=== PATIENT | female | born 1985 | race Caucasian/White ===

== ENCOUNTER 2020-06-25 19:15 | Emergency (ER) | payer OTHER ==
[~2020-06-25] VITALS: Ht 175.3 cm; Wt 81.7 kg
[~2020-06-25 19:15] MED LIST: ANTIVERT25 MG PO; IBUPROFEN 600600 M1; IBUPROFEN 800800 M1; PERCOCET; TUMS PO; VICODIN 5-5001 EACH; VIVA CT PRENAT1 EACH; ZOFRAN 4 MG ORAL4 MG PO; ZOFRAN ODT4 MG PO
[2020-06-25] MEDS ORDERED: CLARITIN10 M3 PO (19:30)
[2020-06-25] MEDS ORDERED: HYDROCODON-ACE1 EAC7 PO (20:48)
[2020-06-25 21:19] VITALS: BP 112/70
== END 2020-06-25 21:20 | disposition home or self-care (01) ==
LOC: M.ERS 19:15
DX: S62.524A Nondisplaced fracture of distal phalanx of right thumb, initial encounter for closed fracture (principal); M79.672 Pain in left foot; Z98.890 Other specified postprocedural states; V49.69XA Unspecified car occupant injured in collision with other motor vehicles in traffic accident, initial encounter; Y93.89 Activity, other specified; Y92.89 Other specified places as the place of occurrence of the external cause; Y99.8 Other external cause status